=== PATIENT | male | born 1975 | race Caucasian/White ===

== ENCOUNTER 2025-02-10 20:47 | Emergency (ER) | payer OTHER ==
[2025-02-10] MEDS ORDERED: ONDANSETRON 4 MG/2 ML VIAL ONE (21:58)
[2025-02-10] MEDS ORDERED: NA CHLORIDE 0.9% 1,000 ML ONE (21:58)
[2025-02-10 22:27] LABS: Absolute Basophils 0.1 K/uL (0-0.5); Absolute Eosinophils 0.1 K/uL (0-0.5); Absolute Lymphocytes (CBC) 2.5 K/uL (0.7-4.9); Absolute Monocytes 0.6 K/uL (0.1-1.3); Absolute Neutrophil 6.1 K/uL (1.8-8.0); Basophils % 1.2 % (0-1.3); Eosinophils % 0.9 % (0-4.4); Hematocrit 43.4 % (39.6-49.0); Hemoglobin 15.2 g/dL (13.6-17.9); Lymphocytes % 26.7 % (15.3-44.8); MCV 91.6 fL (80-100); MPV 6.9 fL (7.6-11.3); Monocytes % 6.3 % (3.3-12.3); Neutrophils % 64.9 % (41.7-73.7); Platelets 339 thou/uL (152-406); RBC Red Blood Cell Count 4.74 M/uL (4.33-5.43); Red Cell Distribution Width 13.9 % (12.1-15.2)
--- NOTE | 2025-02-10 22:27 | RAD REPORT ---
EXAMINATION: ONE VIEW CHEST XR CLINICAL INDICATION: Male, 50 years old.,DYSPNEA TECHNIQUE: Frontal chest projection is submitted. Examination is limited by patient positioning and t echnique. COMPARISON: No prior exam. FINDINGS: The lungs are well inflated and clear. No pneumothorax or sizable effusion. The heart is normal in s ize. Mediastinal contours are unremarkable. IMPRESSION: No acute intrathoracic abnormalities.
[2025-02-10 22:32] LABS: PT Prothrombin Time 12.2 SECONDS (10-13.0); Protime INR 1.07
[2025-02-10 22:56] LABS: ALT/SGPT 17 U/L (16-61); Albumin/Globulin Ratio 0.8 (1.1-1.8); Alkaline Phosphatase 94 U/L (45-117); Anion Gap 7.1 mEq/L (5.0-15.0); BUN Blood Urea Nitrogen 4 mg/dL (7-18); Bicarbonate 30 mEq/L (21-32); Bilirubin Total 0.4 mg/dL (0.2-1.0); Globulin 3.9 g/dL (2.3-3.5); Glomerular Filtration Rate 105 ml/min (=/>90); Glucose Level 104 mg/dL (74-106); Lipase 37 U/L (13-75); Magnesium 2.1 mg/dL (1.6-2.4); NT PRO-BNP 15 pg/mL (<125); Potassium 3.1 mEq/L (3.5-5.1); Protein, Total 6.9 g/dL (6.4-8.2); Sodium Level 133 mEq/L (136-145); Troponin High Sensitivity 3.4 pg/mL (<58.9)
[2025-02-10 22:59] LABS: AST/SGOT < 10 U/L (15-37); Bilirubin Direct < 0.2 mg/dL (0-0.2); Bilirubin Indirect, Calculated 0.2 mg/dL (0.2-0.8)
[2025-02-10] MEDS ORDERED: IPRATROPIUM BROM 0.5MG/2.5ML ONE (23:06)
[2025-02-10] MEDS ORDERED: LEVALBUTEROL 1.25 MG/3 ML NEB ONE (23:11)
[2025-02-10] MEDS ORDERED: FAMOTIDINE 20 MG/2 ML VIAL IV ONE (23:11)
[2025-02-10 23:39] LABS: Specific Gravity 1.007 (1.005-1.030); Urine Bilirubin NEGATIVE (Negative); Urine Blood Negative (Negative); Urine Clarity Clear (Clear); Urine Color Light-Yellow (Yellow); Urine Glucose NEGATIVE (Negative); Urine Ketones NEGATIVE (Negative); Urine Microscopic Reflex YN NO UMIC; Urine Nitrite NEGATIVE (Negative); Urine Protein NEGATIVE (Negative); Urine Urobilinogen 2+ (Normal)
[2025-02-10 23:49] LABS: Barbiturates NEGATIVE (NEGATIVE); Benzodiazepines NEGATIVE (NEGATIVE); Cocaine NEGATIVE (NEGATIVE); METHAMPHETAM NEGATIVE (NEGATIVE); Methadone NEGATIVE (NEGATIVE); Opiates NEGATIVE (NEGATIVE); Phencyclidine NEGATIVE (NEGATIVE); THC Cannibis POSITIVE (NEGATIVE)
[2025-02-10] MEDS ORDERED: POTASSIUM 25 MEQ EFFERV TAB ONE (23:54)
--- NOTE | 2025-02-10 23:54 | EDPHYS ---
Physician Documentation [facility] Name: Regino Tillman Age: 50 yrs Sex: Male : 1975 Arrival Date: 02/10/2025 Time: 20:47 Bed 14 Private MD: ED Physician Lalito Stone HPI: 02/10 22:15 This 50 yrs old Male presents to ER via Ambulatory with complaints of karen Breathing Difficulty, Vomiting. 22:15 The patient has shortness of breath at rest, with light activity. Onset: The karen symptoms/episode began/occurred 3 day(s) ago. Duration: The symptoms are continuous, and are unchanged since they started. The patient's shortness of breath has no apparent modifying factors. Associated signs and symptoms: The patient has no apparent associated signs or symptoms. Severity of symptoms: At their worst the symptoms were mild in the emergency department the symptoms are unchanged. The patient has not experienced similar symptoms in the past. Historical: - Allergies: 21:11 No Known Allergies; cm10 - Home Meds: 21:11 None [Active]; cm10 - PMHx: 21:11 Schizophrenia; cm10 - Immunization history:: Adult Immunizations unknown. - Infectious Disease History:: Denies. - Social history:: Smoking status: Patient reports the use of cigarette tobacco products, smokes 4 packs per day. ROS: 22:16 Constitutional: Negative for fever, chills, and weight loss, Eyes: Negative for injury, karen pain, redness, and discharge, ENT: Negative for injury, pain, and discharge, Neck: Negative for injury, pain, and swelling, Cardiovascular: Negative for chest pain, palpitations, and edema, Back: Negative for injury and pain, : Negative for injury, bleeding, discharge, and swelling, MS/Extremity: Negative for injury and deformity, Skin: Negative for injury, rash, and discoloration, Neuro: Negative for headache, weakness, numbness, tingling, and seizure, Psych: Negative for depression, anxiety, suicide ideation, homicidal ideation, and hallucinations, Allergy/Immunology: Negative for hives, rash, and allergies, Endocrine: Negative for neck swelling, polydipsia, polyuria, polyphagia, and marked weight changes, Hematologic/Lymphatic: Negative for swollen nodes, abnormal bleeding, and unusual bruising, 22:16 Respiratory: Positive for cough, shortness of breath, at rest. 22:16 Abdomen/GI: Positive for nausea and vomiting, Exam: 22:16 Constitutional: This is a well developed, well nourished patient who is awake, alert, karen and in no acute distress. Head/Face: Normocephalic, atraumatic. Eyes: Pupils equal round and reactive to light, extra-ocular motions intact. Lids and lashes normal. Conjunctiva and sclera are non-icteric and not injected. Cornea within normal limits. Periorbital areas with no swelling, redness, or edema. ENT: Nares patent. No nasal discharge, no septal abnormalities noted. Tympanic membranes are normal and external auditory canals are clear. Oropharynx with no redness, swelling, or masses, exudates, or evidence of obstruction, uvula midline. Mucous membranes moist. Neck: Trachea midline, no thyromegaly or masses palpated, and no cervical lymphadenopathy. Supple, full range of motion without nuchal rigidity, or vertebral point tenderness. No Meningismus. Chest/axilla: Normal chest wall appearance and motion. Nontender with no deformity. No lesions are appreciated. Cardiovascular: Regular rate and rhythm with a normal S1 and S2. No gallops, murmurs, or rubs. Normal PMI, no JVD. No pulse deficits. Abdomen/GI: Soft, non-tender, with normal bowel sounds. No distension or tympany. No guarding or rebound. No evidence of tenderness throughout. Back: No spinal tenderness. No costovertebral tenderness. Full range of motion. Male : Normal genitalia with no discharge or lesions. Skin: Warm, dry with normal turgor. Normal color with no rashes, no lesions, and no evidence of cellulitis. MS/ Extremity: Pulses equal, no cyanosis. Neurovascular intact. Full, normal range of motion., bilateral aka Neuro: Awake and alert, GCS 15, oriented to person, place, time, and situation. Cranial nerves II-XII grossly intact. Motor strength 5/5 in all extremities. Sensory grossly intact. Cerebellar exam normal. Normal gait. Psych: Awake, alert, with orientation to person, place and time. Behavior, mood, and affect are within normal limits. 22:16 Respiratory: the patient does not display signs of respiratory distress, Respirations: normal, Breath sounds: decreased breath sounds, rhonchi, are not appreciated, stridor, is not appreciated, + upper airway congestion. Respiratory rate: 18 Vital Signs: 21:10 BP 106 / 75; Pulse 99; Resp 18; Temp 98.9(O); Pulse Ox 100% on R/A; Pain 0/10; cm10 22:30 BP 126 / 83; Pulse 92; Resp 17; Pulse Ox 100% ; jj7 23:32 BP 126 / 87; Pulse 84; Resp 17; Pulse Ox 99% on Nebulizer Mask; jj7 21:10 Pain Scale: Adult cm10 MDM: 21:13 Medical Screening Exam initiated karen 22:19 Differential diagnosis: Anemia asthma, Bronchitis CHF exacerbation, Chronic Obstructive karen Pulmonary Disease Nonspecific abd pain, cholecystitis, pancreatitis, appendicitis, diverticulitis, viral gastroenteritis, gastroenteritis, Pneumothorax pulmonary edema, Pulmonary Embolism reactive airway disease, Sepsis Unstable Angina appendicitis, coronary artery disease, cholecystitis, Cholelithiasis, diverticulitis, gastroesophageal reflux disease, GI Bleed, Mesenteric ischemia or infarction, non-specific abd pain, Peptic Ulcer Disease, Perf. Duodenal Ulcer, Ureterolithiasis, urinary tract infection. Antibiotic administration: Not indicated. Immunization status: Influenza vaccine: within last 5 years. Data reviewed: vital signs, nurses notes, lab test result(s), EKG, radiologic studies, CT scan, plain films. Consideration of Admission/Observation Escalation of care including admission/observation considered. I considered the following discharge prescriptions or medication management in the emergency department Medications were administered in the Emergency Department. See MAR. Independent interpretation of the following test(s) in the Emergency Department CT Scan: My interpretation is ct ab / pel. Test considered but Not performed: Ultrasound no abd pel. Historians other than the Patient: Spouse/Significant Other: well informed. Care significantly affected by the following chronic conditions: Chronic Obstructive Pulmonary Disease. Counseling: I had a detailed discussion with the patient and/or guardian regarding the historical points, exam findings, and any diagnostic results supporting the discharge/admit diagnosis, lab results, radiology results, the need for outpatient follow up, for definitive care, 23:57 ED course: pt would not wait on ct results, insisted to to leave, tried to convince, karen refused. 02/10 21:15 Order name: Basic Metabolic Panel; Complete Time: 23:17 [facility] 02/10 21:15 Order name: CBC with Diff; Complete Time: 23:17 [facility] 02/10 21:15 Order name: LFT's; Complete Time: 23:17 [facility] 02/10 21:15 Order name: Magnesium; Complete Time: 23:17 [facility] 02/10 21:15 Order name: NT PRO-BNP; Complete Time: 23:17 [facility] 02/10 21:15 Order name: PT-INR; Complete Time: 23:17 [facility] 02/10 21:15 Order name: Troponin HS; Complete Time: 23:17 [facility] 02/10 21:15 Order name: Lipase; Complete Time: 23:17 [facility] 02/10 21:15 Order name: UA Rfx Quentin Cult if indicated; Complete Time: 23:53 [facility] 02/10 21:15 Order name: UDS; Complete Time: 23:53 [facility] 02/10 21:15 Order name: XRAY Chest (1 view); Complete Time: 23:17 [facility] 02/10 22:14 Order name: CT Abd/Pelvis - IV Contrast Only [facility] 02/10 21:15 Order name: Cardiac monitoring; Complete Time: 23:31 [facility] 02/10 21:15 Order name: EKG - Nurse/Tech; Complete Time: 23:31 [facility] 02/10 21:15 Order name: IV Saline Lock; Complete Time: 22:14 [facility] 02/10 21:15 Order name: Labs collected and sent; Complete Time: 22:14 [facility] 02/10 21:15 Order name: O2 Per Protocol; Complete Time: 22:14 [facility] 02/10 21:15 Order name: O2 Sat Monitoring; Complete Time: 22:14 [facility] Administered Medications: 22:09 Drug: NS 0.9% IV 1000 ml IV at 1 bolus Per protocol; to be given as a bolus over 60 7 minutes Route: IV; Rate: 1 bolus; Site: right antecubital; 02/11 00:06 Follow up: IV Status: Completed infusion [facility] 02/10 22:09 Drug: Ondansetron IVP 8 mg IVP once; over 2 minutes Route: IVP; Site: right antecubital;02/11 00:06 Follow up: Response: Marked relief of symptoms 02/10 23:15 Drug: Levalbuterol Inhalation 2.5 mg Inhalation once Route: Inhalation; 23:15 Drug: Ipratropium Inhalation Aerosol 0.5 mg Inhalation once Route: Inhalation; 23:30 Drug: Famotidine IVP 20 mg IVP once; dilute with 10 mL 0.9% NaCl; give over 2 minutes jj7 Route: IVP; Site: right antecubital; 02/11 00:06 Follow up: Response: Marked relief of symptoms 00:06 Drug: Potassium PO Effervescent Tablet 50 mEq PO once; dissolve in 4 ounces of water or jj7 juice Route: PO; 00:06 Follow up: Response: No adverse reaction j Disposition Summary: 02/10/25 23:54 Discharge Ordered Notes: Location: Home karen Problem: new karen Symptoms: have improved karen Condition: Fair karen Diagnosis - Dyspnea karen - COPD/ Chronic obstructive pulmonary disease, unspecified karen - Vomiting karen - Tobacco abuse counseling karen - Tobacco use karen - Hypokalemia karen Followup: karen - With: Private Physician - When: 2 - 3 days - Reason: Recheck today's complaints, Continuance of care, Re-evaluation by your physician Followup: karen - With: Ro Ferreira MD - When: 2 - 3 days - Reason: Recheck today's complaints, Re-evaluation by your physician Followup: karen - With: Ramiro Chan MD - When: 2 - 3 days - Reason: Recheck today's complaints, Re-evaluation by your physician Discharge Instructions: - Discharge Summary Sheet karen - Chronic Bronchitis, Adult karen - Chronic Obstructive Pulmonary Disease karen - Potassium Content of Foods karen - How to Use a Metered Dose Inhaler karen - Nausea and Vomiting, Adult karen - Schizophrenia karen - Self-Destructive Behavior karen - Steps to Quit Smoking karen - Health Risks of Smoking karen - Chronic Obstructive Pulmonary Disease, [id number] karen - Steps to Quit Smoking, [id number]-[id number] karen - Cough, Adult, [id number]-[id number] karen - Hypokalemia karen - Vomiting, Adult karen - Supporting Someone With Schizophrenia karen Forms: - Medication Reconciliation Form karen - Antibiotic Education karen - Prescription Opioid Use karen - Patient Portal Instructions karen - Leadership Thank You Letter karen Prescriptions: - albuterol sulfate 90 mcg/actuation Inhalation HFA Aerosol Inhaler - inhale 2 puff INHALATION route every 4 to 6 hours as needed for shortness of karen breath or wheezing; 1 unit; Refills: 0, Product Selection Permitted - ondansetron 8 mg Oral Tablet,disintegrating - take 1 tablet ORAL route every 8 hours prn; 24 tablet; Refills: 0, Product karen Selection Permitted - Protonix 40 mg Oral Tablet - take 1 tablet ORAL route once daily; 30 tablet; Refills: 0, Product Selection karen Permitted - Potassium Chloride 20 meq Oral Packet - take 1 packet ORAL route once daily 1 packet in 6 (six) ounces of water or karen juice; Take after meal; 10 packet; Refills: 0, Product Selection Permitted Signatures: Dispatcher [employer] Lalito Whiting MD MD cha Johnson, Juwairiyah RN RN jj7 Mehnaz Orr RN RN cm10 Corrections: (The following items were deleted from the chart) 02/10 21:12 21:11 PMHx: None; 10 cm10
--- NOTE | 2025-02-10 23:54 | ER ---
Nurse's Notes [facility] Name: Regino Tillman Age: 50 yrs Sex: Male : 1975 Arrival Date: 02/10/2025 Time: 20:47 Bed 14 Private MD: Diagnosis: Dyspnea;COPD/ Chronic obstructive pulmonary disease, unspecified;Vomiting;Tobacco abuse counseling;Tobacco use;Hypokalemia Presentation: 02/10 21:10 Chief complaint: Patient states: Vomiting and shortness of breath onset 1 week ago. cm10 Coronavirus screen: Client denies travel out of the [place] in the last 14 days. Ebola Screen: Patient denies travel to an Ebola-affected area in the 21 days before illness onset. Initial Sepsis Screen: Does the patient meet any 2 criteria? HR > 90 bpm. Does the patient have a suspected source of infection? No. Patient's initial sepsis screen is negative. Risk Assessment: Do you want to hurt yourself or someone else? Patient reports no desire to harm self or others. Onset of symptoms was February 10, 2025. 21:10 Method Of Arrival: Ambulatory cm10 21:10 Acuity: CHAY 3 cm10 Triage Assessment: 21:12 General: Appears uncomfortable, Behavior is calm, cooperative. Respiratory: No deficits cm10 noted. Reports shortness of breath Airway is patent Respiratory effort is even, unlabored, Respiratory pattern is regular, symmetrical. Historical: - Allergies: 21:11 No Known Allergies; cm10 - Home Meds: 21:11 None [Active]; cm10 - PMHx: 21:11 Schizophrenia; cm10 - Immunization history:: Adult Immunizations unknown. - Infectious Disease History:: Denies. - Social history:: Smoking status: Patient reports the use of cigarette tobacco products, smokes 4 packs per day. Screenin:00 [facility] ED Fall Risk Assessment (Adult) History of falling in the last 3 months, jj7 including since admission No falls in past 3 months (0 pts) Confusion or Disorientation No (0 pts) Intoxicated or Sedated No (0 pts) Impaired Gait No (0 pts) Mobility Assist Device Used No (0 pt) Altered Elimination No (0 pt) Score/Fall Risk Level 0 - 2 = Low Risk Oriented to surroundings, Maintained a safe environment, Educated pt \T\ family on fall prevention, incl call for assistance when getting out of bed, Assessed \T\ reinforced patient's understanding of fall precautions. Abuse screen: Denies threats or abuse. Nutritional screening: No deficits noted. Tuberculosis screening: No symptoms or risk factors identified. Assessment: 22:00 General: Appears in no apparent distress. comfortable, Behavior is calm, cooperative, jj7 appropriate for age, Smells of CIGARETTES . Pain: Complains of pain in abdomen. Neuro: PT DISPLAYING EPS SYMPTOMS .PT STATES HE HAS BEEN ON PSYCH MEDS FOR YEARS WITHOUT F/U WITH PSYCHIATRIST . Respiratory: Airway is patent Trachea midline Respiratory effort is even, unlabored, Respiratory pattern is regular, symmetrical. GI: Reports lower abdominal pain, upper abdominal pain, intolerance of fluids, intolerance of food, nausea. Vital Signs: 21:10 BP 106 / 75; Pulse 99; Resp 18; Temp 98.9(O); Pulse Ox 100% on R/A; Pain 0/10; cm10 22:30 BP 126 / 83; Pulse 92; Resp 17; Pulse Ox 100% ; jj7 23:32 BP 126 / 87; Pulse 84; Resp 17; Pulse Ox 99% on Nebulizer Mask; jj7 21:10 Pain Scale: Adult cm10 ED Course: 20:49 Patient arrived in ED. mr 21:11 Triage completed. cm10 21:12 Arm band placed on right wrist. Patient placed in waiting room. cm10 21:13 Lalito Stone MD is Attending Physician. karen 21:56 Juan M Mclean, CHRISTELLE is Primary Nurse. jj7 22:00 Patient has correct armband on for positive identification. Bed in low position. Call jj7 light in reach. Adult w/ patient. Provided Education on: USE OF CALL ESCALONA. Warm blanket given. 22:01 XRAY Chest (1 view) In Process Unspecified. EDMS 22:14 Basic Metabolic Panel Sent. jj7 22:14 CBC with Diff Sent. jj7 22:14 LFT's Sent. jj7 22:14 Magnesium Sent. jj7 22:14 NT PRO-BNP Sent. jj7 22:14 PT-INR Sent. jj7 22:14 Troponin HS Sent. jj7 23:40 CT Abd/Pelvis - IV Contrast Only In Process Unspecified. EDMS 23:53 Ro Ferreira MD is Referral Physician. karen 23:53 Rocio, Ramiro, MD is Referral Physician. [facility] 02/11 00:07 No provider procedures requiring assistance completed. IV discontinued, intact, jj7 bleeding controlled, No redness/swelling at site. Pressure dressing applied. Administered Medications: 02/10 22:09 Drug: NS 0.9% IV 1000 ml IV at 1 bolus Per protocol; to be given as a bolus over 60 jj7 minutes Route: IV; Rate: 1 bolus; Site: right antecubital; 02/11 00:06 Follow up: IV Status: Completed infusion j 02/10 22:09 Drug: Ondansetron IVP 8 mg IVP once; over 2 minutes Route: IVP; Site: right antecubital;7 02/11 00:06 Follow up: Response: Marked relief of symptoms j 02/10 23:15 Drug: Levalbuterol Inhalation 2.5 mg Inhalation once Route: Inhalation; j7 23:15 Drug: Ipratropium Inhalation Aerosol 0.5 mg Inhalation once Route: Inhalation; 7 23:30 Drug: Famotidine IVP 20 mg IVP once; dilute with 10 mL 0.9% NaCl; give over 2 minutes j7 Route: IVP; Site: right antecubital; 02/11 00:06 Follow up: Response: Marked relief of symptoms j 00: Drug: Potassium PO Effervescent Tablet 50 mEq PO once; dissolve in 4 ounces of water or jj7 juice Route: PO; 00:06 Follow up: Response: No adverse reaction jj7 Medication: 02/10 22:00 VIS not applicable for this client. jj7 Outcome: 23:54 Discharge ordered by . [facility] 02/11 00:07 Discharged to home ambulatory, with significant other, jj7 Condition: improved Discharge instructions given to patient, Instructed on discharge instructions, follow up and referral plans. medication usage, Demonstrated understanding of instructions, follow-up care, medications, Prescriptions given X 4, 00:08 Patient left the ED. jj7 Signatures: Dispatcher [employer] EDWA Lalito Stone MD MD cha Rivera, Mary, Reg Reg uJan M Quach RN RN jj7 Martinez, Clarissa, RN RN cm10 Corrections: (The following items were deleted from the chart) 02/10 21:12 21:11 PMHx: None; cm10 cm10
[2025-02-11 00:23] VITALS: TEMP 98.9
[2025-02-11 00:26] VITALS: BP 126/87; O2SAT 99
--- NOTE | 2025-02-11 00:32 | RAD REPORT ---
EXAM DESCRIPTION: CT ABDOMEN PELVIS WITH IV CONTRAST CLINICAL HISTORY: 50 years Male Abdomen pain. COMPARISON: None. TECHNIQUE: Images were obtained in axial, coronal and sagittal planes. Intravenous contrast was administrated. T his exam was performed according to our departmental dose-optimization program which includes use of Automated Exposure Control, adjustment of the mA and/or kV according to patient size and/or use of iterative reconstruction technique. FINDINGS: Decreased attenuation involving the liver consistent with fatty change. Unremarkable spleen, pancreas , gallbladder, and adrenal glands bilaterally. No obstructing renal or ureteral calculi bilaterally. No hydronephrosis bilaterally. Unremarkable brendan dder. Mildly enlarged prostate gland. Appendix within normal limits. No bowel obstruction or perforation. Mildly distended fluid-filled sma ll bowel loops consistent with enteritis No abnormality lower lungs bilaterally. No dilatation of the abdominal aorta. Unremarkable portal vein. No adenopathy or abnormal fluid colle ctions. No acute osseous abnormality. IMPRESSION: Suspected enteritis. Appendix within normal limits. Fatty change involving the liver. Electronically signed by: Jacquelyn Castillo MD 02/11/2025 12:29 AM CDT Due to temporary technical issues with the PACS/[employer] reporting system, reports are being carito d by the in-house radiologist without review as a courtesy to ensure prompt reporting the interpreting radiologist is fully responsible for the content of the report. Transcribed Date/Time: 02/11/2025 12:31 AM
== END 2025-02-11 00:08 | disposition home or self-care (01) ==
LOC: ER 20:47
DX: J44.9 Chronic obstructive pulmonary disease, unspecified (principal); E87.6 Hypokalemia; R11.10 Vomiting, unspecified; Z71.6 Tobacco abuse counseling; Z72.0 Tobacco use
CPT/HCPCS: 96361; 85025; 80048; 36415; 83735; 85610; 80076; 81003; 84484; 83690; 83880; 80307; 74177; 71045; 96375; 96374; 99285; Q9967; J7614; J7644; J2405; J7030